=== PATIENT | female | born 1985 | race Caucasian/White ===

== ENCOUNTER 2018-06-20 18:43 | Inpatient (IN) | payer OTHER ==
[~2018-06-20] VITALS: Ht 162.6 cm; Wt 69.4 kg
[~2018-06-20 18:43] MED LIST: DSS100 PO; IBUP-2071 PO; PREN1TAB80 PO
[2018-06-20] MEDS ORDERED: RINGERS SOLUTION,LACTATED 1,000 ML IV SCH (19:43)
[2018-06-20] MEDS ORDERED: RINGERS SOLUTION,LACTATED 1,000 ML IV PRN (19:43)
[2018-06-20] MEDS ORDERED: METOCLOPRAMIDE HCL 5 MG/ML 2 ML VIAL IVP PRN (19:45)
[2018-06-20] MEDS ORDERED: CITRIC ACID/SODIUM CITRATE 30 ML SOLUTION UDCUP PO PRN ×2 (19:45→21:30)
[2018-06-20 19:52] VITALS: BP 122/56
[2018-06-20] MEDS ORDERED: OXYGEN THERAPY IH SCH (20:00)
[2018-06-20] MEDS ORDERED: MISOPROSTOL 25 MCG TABLET PR ONE (21:30)
[2018-06-20] MEDS ORDERED: METHYLERGONOVINE MALEATE 0.2 MG/ML VIAL IM PRN (21:30)
[2018-06-20] MEDS ORDERED: CARBOPROST TROMETHAMINE 250 MCG/ML AMP IM PRN (21:30)
[2018-06-20] MEDS ORDERED: LIDOCAINE/PF 1% 30 ML VIAL INJ PRN (21:30)
[2018-06-20] MEDS ORDERED: OXYTOCIN 30 UNITS/LACT RINGERS 500 ML IV ONE (21:30)
[2018-06-20] MEDS ORDERED: ROPIVACAINE HCL/PF 0.2% 100 ML ED ONE (23:06)
[2018-06-21 00:24] LABS: BASOPHILS % (AUTO) 0.4 % (0.0-2.0); EOSINOPHILS % (AUTO) 0.9 % (1.0-6.0); HEMATOCRIT 33.6 % (36-46); HEMOGLOBIN 11.3 g/dL (12.0-16.0); LYMPHOCYTES # (AUTO) 3.2 K/uL (1.0-4.8); LYMPHOCYTES % (AUTO) 23.7 % (22.0-44.0); MEAN CORPUSCULAR HEMOGLOBIN 30.9 pg (26.0-34.0); MEAN CORPUSCULAR HGB CONC 33.6 G/dL (31.0-37.0); MEAN CORPUSCULAR VOLUME 92 fL (80-100); NEUTROPHILS # (AUTO) 9.3 K/uL (1.8-7.7); PLATELET COUNT (AUTO)-OB 332 K/uL (150-450); RED BLOOD CELL COUNT(AUTO) 3.65 MIL/uL (4.00-5.20); RED CELL DISTRIBUTION WIDTH 14.3 % (11.5-14.5)
[2018-06-21] MEDS ORDERED: ACETAMINOPHEN/CODEINE 300-30 MG TABLET PO PRN ×2 (03:30)
[2018-06-21] MEDS ORDERED: GLYCERIN/WITCH HAZEL LEAF 40 PADS JAR TP PRN (03:30)
[2018-06-21] MEDS ORDERED: CeFAZolin 1 GM/DEXTROSE 50 ML IV ONE (03:30)
[2018-06-21] MEDS ORDERED: LANOLIN 7 GM OINTMENT TP PRN (03:30)
[2018-06-21] MEDS ORDERED: BENZOCAINE 20%/MENTHOL 56 GM SPRAY CANISTER TP PRN (03:30)
[2018-06-21] MEDS: IBUPROFEN 800 MG TABLET PO SCH ×3 (08:46→20:50)
[2018-06-21] MEDS: MAGNESIUM HYDROXIDE SUSPENSION 30 ML UDCUP PO SCH ×2 (08:52→20:50)
[2018-06-22] MEDS: IBUPROFEN 800 MG TABLET PO SCH ×2 (02:53→08:52)
[2018-06-22] MEDS: MAGNESIUM HYDROXIDE SUSPENSION 30 ML UDCUP PO SCH (08:51)
[2018-06-22] MEDS ORDERED: IBUP-2070 PO (12:25)
== END 2018-06-22 13:30 | disposition home or self-care (01) | DRG 807 ==
LOC: OBSVTOIN 18:43 → 4S 18:43
PROVIDERS: ADMIT Obstetrics & Gynecology; ATTEND Obstetrics & Gynecology
PROC: 10E0XZZ Delivery of Products of Conception, External Approach (ICD-10-PCS; principal; 2018-06-21)
PROC: 0KQM0ZZ Repair Perineum Muscle, Open Approach (ICD-10-PCS; 2018-06-21)
PROC: 3E0R3BZ Introduction of Anesthetic Agent into Spinal Canal, Percutaneous Approach (ICD-10-PCS; 2018-06-21)
PROC: 00HU33Z Insertion of Infusion Device into Spinal Canal, Percutaneous Approach (ICD-10-PCS; 2018-06-21)
DX: O70.1 Second degree perineal laceration during delivery (principal); Z37.0 Single live birth; Z3A.38 38 weeks gestation of pregnancy
CPT/HCPCS: 86850; 86900; 86901; J0690; J2590; J2795; J7120